=== PATIENT | male | born 1940 | race Caucasian/White ===

== ENCOUNTER 2020-01-23 08:47 | Emergency (ER) | payer OTHER ==
[~2020-01-23] VITALS: Ht 170.2 cm; Wt 77.6 kg
[2020-01-23 08:55] VITALS: Ht 170.2 cm; Wt 77.6 kg
[2020-01-23] MEDS ORDERED: ASPIR 8181 MG PO (09:18)
[2020-01-23] MEDS ORDERED: MASON NATURAL1000 IU PO (09:18)
[2020-01-23] MEDS ORDERED: TAMSULOSIN HCL0.4 MG PO (09:19)
[2020-01-23] MEDS ORDERED: ATORVASTATIN CA20 M1 PO (09:19)
[2020-01-23] MEDS ORDERED: NORVASC10 MG PO (09:19)
[2020-01-23] MEDS ORDERED: PROTONIX TR40 M1 PO (09:20)
[2020-01-23] MEDS ORDERED: METFORMIN HCL500 M4 PO (09:20)
[2020-01-23 09:38] LABS: microscopic required? YES; urine erythrocyte 3+ (NEGATIVE)
[2020-01-23 12:56] VITALS: BP 138/75
== END 2020-01-23 12:56 | disposition home or self-care (01) ==
LOC: ED 08:47
PROVIDERS: Emergency Medicine
DX: N39.0 Urinary tract infection, site not specified (principal); I10 Essential (primary) hypertension; E11.9 Type 2 diabetes mellitus without complications; E78.00 Pure hypercholesterolemia, unspecified; Z98.890 Other specified postprocedural states; Z87.438 Personal history of other diseases of male genital organs
CPT/HCPCS: 76770; 82962; Q0092

== ENCOUNTER 2020-05-11 16:10 | Emergency (ER) | payer OTHER ==
[~2020-05-11] VITALS: Ht 170.2 cm; Wt 69.4 kg
[~2020-05-11 16:10] MED LIST: ASPIR 8181 MG PO; ATORVASTATIN CA20 M1 PO; MASON NATURAL1000 IU PO; METFORMIN HCL500 M4 PO; NORVASC10 MG PO; PROTONIX TR40 M1 PO; TAMSULOSIN HCL0.4 MG PO
[2020-05-11 16:49] VITALS: Ht 170.2 cm; Wt 69.4 kg
[2020-05-11 18:08] VITALS: BP 113/67
== END 2020-05-11 18:09 | disposition home or self-care (01) ==
LOC: ED 16:10
DX: M75.101 Unspecified rotator cuff tear or rupture of right shoulder, not specified as traumatic (principal); M25.511 Pain in right shoulder; I10 Essential (primary) hypertension; E11.9 Type 2 diabetes mellitus without complications; E78.00 Pure hypercholesterolemia, unspecified; Z88.5 Allergy status to narcotic agent; Z98.890 Other specified postprocedural states